=== PATIENT | male | born 1945 | race Caucasian/White ===

== ENCOUNTER 2021-01-26 03:29 | Emergency (ER) | payer BC, MEDICARE, OTHER ==
[~2021-01-26] VITALS: Ht 172.7 cm; Wt 77.3 kg
[2021-01-26] MEDS: MORPHINE 2 MG/ML 1ML VIAL (J2270) IV PRN ×2 (04:11→04:58)
[2021-01-26] MEDS ORDERED: ONDANSETRON 4MG/2ML VIAL IV ONE (04:15)
[2021-01-26] MEDS: HYDROMORPHONE HCL 0.5 MG/ 0.5 ML SYRINGE (J1170 PER 1) IV PRN ×2 (04:20→05:04)
[2021-01-26] MEDS ORDERED: ISOVUE-370 76% 100ML VIAL As Ordered ONE (04:28)
[2021-01-26 04:37] LABS: BASO # 0.1 10^3/uL (0.0-0.2); BASO % 0.9 % (0.0-1.0); EOS # 0.1 10^3/uL (0.0-0.5); EOS % 0.7 % (0.0-3.0); HEMOGLOBIN 13.7 g/dl (13.5-17.5); LYMPH # 1.6 10^3/uL (1.5-5.0); LYMPH % 22.8 % (24.0-44.0); MEAN CORPUSCULAR HEMOGLOBIN 30.6 pg (27.0-33.0); MEAN CORPUSCULAR HGB CONC 34.3 g/dl (32.0-36.5); MEAN CORPUSCULAR VOLUME 89.3 fl (80.0-96.0); MONO # 0.6 10^3/uL (0.0-0.8); NEUTROPHILS # 4.7 10^3/uL (1.5-8.5); NEUTROPHILS % 67.3 % (36.0-66.0); PLATELET COUNT, AUTOMATED 188 10^3/uL (150-450); RED BLOOD COUNT 4.48 10^6/uL (4.30-6.10)
[2021-01-26] MEDS ORDERED: PROMETHAZINE INJ 25 MG/ML VIAL (J2550) IV ONE (04:40)
[2021-01-26 04:51] LABS: ALBUMIN 3.8 GM/DL (3.2-5.2); ALT/SGPT 22 U/L (12-78); BILIRUBIN,DIRECT < 0.1 MG/DL (0.0-0.2); BILIRUBIN,TOTAL 0.3 MG/DL (0.2-1.0); BLOOD UREA NITROGEN 24 MG/DL (7-18); CALCIUM LEVEL 9.4 MG/DL (8.8-10.2); CARBON DIOXIDE LEVEL 25 MEQ/L (21-32); CHLORIDE LEVEL 111 MEQ/L (98-107); CK-MB VALUE MASS 2.6 NG/ML (<3.6); CPK CREATINE PHOSPHOKINASE 172 U/L (39-308); CREATININE FOR GFR 1.32 MG/DL (0.70-1.30); GLUCOSE, FASTING 144 MG/DL (70-100); LIPASE 127 U/L (73-393); MB/CK RELATIVE INDEX 1.51 (< OR =4); POTASSIUM SERUM 3.6 MEQ/L (3.5-5.1); SODIUM LEVEL 143 MEQ/L (136-145); TOTAL PROTEIN 6.5 GM/DL (6.4-8.2); TROPONIN I < 0.02 NG/ML (< 0.10)
[2021-01-26] MEDS ORDERED: NS 1,000 ML IV ONE (05:10)
--- NOTE | 2021-01-26 05:29 | REPVR ---
PROCEDURE INFORMATION: Exam: XR Chest Exam date and time: 01/26/2021 5:07 AM Age: 75 years old Clinical indication: Pain; Other: Abdominal; Additional info: Abdominal pain TECHNIQUE: Imaging protocol: XR of the chest. Views: 1 view. COMPARISON: No relevant prior studies available. FINDINGS: Lungs: Unremarkable. No consolidation. Pleural spaces: Unremarkable. No pleural effusion. No pneumothorax. Heart/Mediastinum: Unremarkable. No cardiomegaly. Bones/joints: Unremarkable. IMPRESSION: Negative chest. Electronically signed by: Uriel Weeks On 01/26/2021 05:29:33 AM
--- NOTE | 2021-01-26 05:29 | REPVR ---
PROCEDURE INFORMATION: Exam: CT Abdomen And Pelvis With Contrast Exam date and time: 01/26/2021 4:45 AM Age: 75 years old Clinical indication: Other: Abdominal pain, h/o sbo TECHNIQUE: Imaging protocol: Computed tomography of the abdomen and pelvis with contrast. Radiation optimization: All CT scans at this facility use at least one of these dose optimization techniques: automated exposure control; mA and/or kV adjustment per patient size (includes targeted exams where dose is matched to clinical indication); or iterative reconstruction. Contrast material: ISOVUE 370; Contrast volume: 100 ml; Contrast route: INTRAVENOUS (IV); COMPARISON: CR PORTABLE CHEST X-RAY 01/26/2021 4:07 AM FINDINGS: Lungs: Bibasilar coarse interstitium with minimal fibro-atelectatic change. Mediastinal space: Minimal hiatal hernia. Liver: Normal. No mass. Gallbladder and bile ducts: Normal. No calcified stones. No ductal dilation. Pancreas: Normal. No ductal dilation. Spleen: Normal. No splenomegaly. Adrenal glands: Normal. No mass. Kidneys and ureters: Minimal right perinephric fluid anteriorly. Mild right hydronephrosis and hydroureter which extends to a distal right ureteral calculus approximately 13 mm from the right UVJ and measures 2 x 2 x 3 mm. Stomach and bowel: Much of the colon is collapsed or contracted with minimal diffuse colonic wall thickening, greatest distally. Minimal colonic diverticulosis without diverticulitis. Appendix: There are no changes of appendicitis. A normal appendix is not seen. Intraperitoneal space: Unremarkable. No free air. No significant fluid collection. Vasculature: There is mild calcification of the abdominal aorta with extension into the iliac arteries. There is lobular ectasias of the infrarenal aorta with 1 area measuring 2.2 x 2.6 cm in diameter and another measuring 3.2 x 2.4 cm. Lymph nodes: Unremarkable. No enlarged lymph nodes. Urinary bladder: Unremarkable as visualized. Reproductive: Brachytherapy seeds are noted in the prostate. Bones/joints: Unremarkable. No acute fracture. Soft tissues: Unremarkable. IMPRESSION: 1. Distal right ureteral calculus approximately 13 mm above the right UVJ measuring 2 x 2 x 3 mm with obstructive uropathy of the right upper tract. There is some anterior right perinephric fluid suggesting some pyelosinus backflow. 2. Bibasilar pulmonary coarse interstitium with minimal fibro-atelectatic change. 3. 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 4. Prostatic brachytherapy seeds in position. 5. Minimal nonspecific pancolitis. 6. Minimal colonic diverticulosis without diverticulitis. Electronically signed by: Uriel Weeks On 01/26/2021 05:29:00 AM
[2021-01-26 05:39] LABS: RSV AMPLIFICATION NEGATIVE (NEGATIVE)
[2021-01-26] MEDS ORDERED: KETOROLAC 30 MG/ML 1ML VIAL IV ONE (06:15)
[2021-01-26] MEDS ORDERED: TAMSULOSIN 0.4 MG CAP PO ONE (06:15)
[2021-01-26] MEDS ORDERED: CEFDINIR 300 MG CAP (OMNICEF) PO ONE (06:30)
[2021-01-26] MEDS ORDERED: CEFD1CAP8 PO (06:32)
[2021-01-26] MEDS ORDERED: FLOM0.4C39 PO (06:32)
[2021-01-26] MEDS ORDERED: PERC5TAB12 PO (06:32)
[2021-01-26] MEDS ORDERED: KETO10TAB PO (06:32)
--- NOTE | 2021-01-26 07:13 | ED PDOC ---
Post-Departure Follow-Up certified letter sent to patient reagrding radiology report Valorie Jackman MD Jan 26, 2021 07:13
[2021-01-26 09:54] VITALS: BP 126/64
--- NOTE | 2021-01-26 16:54 | ECGEPIP ---
[facility] - ED Test Date: 2021-01-26 Pat Name: BESSIE LAWLER Department: Room: - Gender: Male [place]: ED : 1945 Requested By: ASHLY Núñez Order Number: [id number] Reading MD: Valorie Jackman Measurements Intervals [place] Rate: 64 P: 38 NC: 158 QRS: -23 QRSD: 84 T: 21 QT: 426 QTc: 439 Interpretive Statements Normal sinus rhythm Low voltage QRS prwp NSTTW abnormalities No prior Electronically Signed on 01-26-2021 16:53:58 EDT by Valorie Jackman
== END 2021-01-26 10:32 | disposition home or self-care (01) ==
LOC: M ED 03:29
DX: N20.1 Calculus of ureter (principal); C61 Malignant neoplasm of prostate; Z79.891 Long term (current) use of opiate analgesic; Z79.899 Other long term (current) drug therapy
CPT/HCPCS: 71045; 74177; 80047; 80048; 80076; 81001; 82550; 82553; 83605; 83690; 84484; 85025; 87631; 93005; 93041; 96361; 96374; 96375; 96376; 99285; J1170; J1885; J2270; J2405; Q9967